=== PATIENT | female | born 1990 | race Caucasian/White ===

== ENCOUNTER 2022-12-01 10:19 | Emergency (ER) | payer SELFPAY ==
[~2022-12-01] VITALS: Ht 157.5 cm; Wt 54.4 kg
[2022-12-01 10:26] VITALS: BP 106/66
[2022-12-01] MEDS ORDERED: ONDANSETRON 4 MG/2 ML VIAL IVP ONE (11:05)
[2022-12-01] MEDS ORDERED: MORPHINE SULFATE 4 MG/ML SYR IVP ONE (11:05)
[2022-12-01] MEDS ORDERED: NACL 0.9% 1,000 ML IV ONE (11:05)
[2022-12-01 11:21] LABS: BASOPHILS % (AUTO) 0.7 % (0.0-2.0); EOSINOPHILS # (AUTO) 0.1 K/uL (0-0.4); EOSINOPHILS % (AUTO) 2.3 % (0.0-4.0); HEMATOCRIT 38.9 % (36-48); HEMOGLOBIN 12.6 g/dL (12.0-16.0); LYMPHOCYTES # (AUTO) 1.8 K/uL (2.5-16.5); LYMPHOCYTES % (AUTO) 35.2 % (20.5-51.1); MEAN CORPUSCULAR HEMOGLOBIN 27 pg (27-31); MEAN CORPUSCULAR HGB CONC 32 g/dL (33-37); MEAN CORPUSCULAR VOLUME 83.2 fL (80-94); MONOCYTES # (AUTO) 0.6 K/uL (0.8-1.0); MONOCYTES % (AUTO) 12.4 % (1.7-9.3); NEUTROPHILS # (AUTO) 2.6 K/uL (1.8-7.7); NEUTROPHILS % (AUTO) 49.4 % (42.2-75.2); PLATELET COUNT (AUTO) 267 K/uL (140-450); RED BLOOD CELL COUNT(AUTO) 4.68 MIL/uL (4.20-5.40); RED CELL DISTRIBUTION WIDTH 12.4 % (11.6-13.7); WHITE BLOOD COUNT (AUTO) 5.2 K/uL (4.8-10.8)
[2022-12-01 11:38] LABS: ALBUMIN 3.8 g/dL (3.4-5.0); CARBON DIOXIDE 27.6 mmol/L (21-32); CREATININE 0.7 mg/dL (0.6-1.3); POTASSIUM 3.6 mmol/L (3.5-5.1); TOTAL BILIRUBIN 0.1 mg/dL (0.0-1.0)
[2022-12-01 12:39] LABS: APPEARANCE,URINE CLEAR (CLEAR); BILIRUBIN,URINE NEGATIVE (NEGATIVE); BLOOD, URINE TRACE-L (NEGATIVE); COLOR,URINE YELLOW (YELLOW); LEUKOCYTE ESTERASE ,URINE NEGATIVE (NEGATIVE); NITRITE, URINE NEGATIVE (NEGATIVE); UGLUCOSE NEGATIVE (NEGATIVE)
[2022-12-01] MEDS ORDERED: ONDA-188 SL (13:46)
[2022-12-01] MEDS ORDERED: FAMO-90 PO (13:46)
[2022-12-01 13:51] LABS: RBC,URINE 0-5 /HPF (0-5)
[2022-12-01 13:52] LABS: WBC,URINE 0-5 /HPF (0-5)
[2022-12-01 14:12] VITALS: BP 102/70
--- NOTE | 2022-12-01 14:17 | NUR ---
IV removed, catheter intact and site benign. Applied folded 4x4 gauze and tape to stop bleeding.
--- NOTE | 2022-12-01 14:19 | NUR ---
Patient discharged with v/s stable. Written and verbal after care instructions ABOUT GASTRITIS given and explained. Patient alert, oriented and verbalized understanding of instructions. Ambulatory with steady gait. All questions addressed prior to discharge. ID band removed. Patient advised to follow up with PMD. Rx of PEPCID AND ZOFRAN ODT given. Patient educated on indication of medication including possible reaction and side effects. Opportunity to ask questions provided and answered.
== END 2022-12-01 14:19 | disposition home or self-care (01) ==
LOC: MED 10:19
DX: K29.70 Gastritis, unspecified, without bleeding (principal)
CPT/HCPCS: 36415; 74177; 80053; 81001; 81025; 83690; 85025; 96361; 96374; 96375; 99285; J2270; J2405; Q9967; J7030